=== PATIENT | male | born 1950 | race Caucasian/White ===

== ENCOUNTER 2024-12-30 10:31 | Outpatient (OUT) | payer MEDICARE, BC, SELFPAY ==
--- NOTE | 2024-12-30 10:39 | XR_ITS ---
The [address] [address] Patient Name: MANUEL CADET MRN: [id number] date: 1950 Sex: M Assigned Patient Location: [facility] Current Patient Location: [facility] Accession/Order Number: [id number] Exam Date: 12/30/2024 11:55 Report Date: 12/30/2024 13:54 At the request of: MARGAUX TIMMIS Procedure: XR chest 2V PROCEDURE: XR chest 2V DATE: 12/30/2024 11:55 AM EST COMPARISONS: None. CLINICAL INDICATION: 73 years Male Preop exam FINDINGS: The cardiomediastinal silhouette and pulmonary vasculature are within normal limits. Poststernotomy changes are identified. An atrial appendage clip is noted. TAVR is present. Slight scattered increased interstitial markings suggest some mild chronic lung changes. Granulomatous changes are noted of the right hilum and suprahilar region. The lungs are otherwise clear. There is no evidence of pleural effusion or pneumothorax. XR/XR chest 2V IMPRESSION: Findings as discussed above. No evidence of acute abnormalities. Electronically authenticated by: FRANCHESKA MACK Date: 12/30/2024 13:54
--- NOTE | 2024-12-30 10:39 | ECG_ITS ---
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
[2024-12-30 12:03] LABS: Hematocrit 46.6 % (42.0-54.0); Mean Corpuscular HGB Conc 27.9 g/dL (29.9-35.2); Mean Corpuscular Hemoglobin 20.9 pg (25.9-34.0); Mean Corpuscular Volume 74.9 fL (80.0-94.0); White Blood Count 12.3 10^3/uL (4.0-11.0)
[2024-12-30 12:04] LABS: Basophils Absolute Auto 0.4 10^3/uL (0.0-0.1); Basophils Percent Auto 3.5 % (0.2-2.0); Eosinophils Absolute Auto 0.3 10^3/uL (0.0-0.7); Eosinophils Percent Auto 2.4 % (0.9-7.0); Immature Granulocytes Abs Auto 0.12 10^3/uL (0.00-0.03); Lymphocytes Absolute Auto 0.8 10^3/uL (1.2-3.8); Lymphocytes Percent Auto 6.1 % (20.5-60.0); Mean Platelet Volume 9.9 fL (9.5-13.5); Monocytes Absolute Auto 0.8 10^3/uL (0.3-0.8); Monocytes Percent Auto 6.3 % (1.7-12.0); Neutrophils Percent Auto 80.7 % (43.0-75.0); Platelet Count 314 10^3/uL (150-450); Red Cell Distribution Width 18.8 % (11.0-15.0)
[2024-12-30 12:24] LABS: Red Blood Count 6.22 10^6/uL (4.70-6.10)
[2024-12-30 12:25] LABS: INR 1.05; Partial Thromboplastin Time 27.9 sec (22.3-36.2); Prothrombin Time 11.1 sec (9.0-11.6)
[2024-12-30 12:42] LABS: Alanine Aminotransferase 32 U/L (16-63); Albumin Level 3.6 g/dL (3.4-5.0); Alkaline Phosphatase 103 U/L (46-116); Aspartate Amino Transferase 28 U/L (15-37); BUN Creatinine Ratio 10.5; Bilirubin Direct 0.1 mg/dL (0.0-0.2); Bilirubin Total 0.5 mg/dL (0.2-1.0); Calcium 9.1 mg/dL (8.5-10.1); Carbon Dioxide 25.7 mmol/L (21.0-32.0); Chloride 103 mmol/L (98-107); Estimated GFR (African America 55 (>=60 mL/min/1.73m^2); Estimated GFR (Non-African Ame 45 (>=60 mL/min/1.73m^2); Globulin 3.7 g/dL; Glucose 271 mg/dL (74-106); Potassium 4.7 mmol/L (3.5-5.1); Sodium 139 mmol/L (136-145); Total Protein 7.3 g/dL (6.4-8.2)
--- NOTE | 2024-12-30 13:18 | P.GSHP_ITS ---
History of Present Illness History of Present Illness Chief complaint: right tonsil lesion Narrative: Mr. Kaleb Alfred is a 73-year-old male presents to presurgical testing with a right tonsil lesion. He has been evaluated by Dr. Cash and he is now scheduled for removal on January 05, 2025. Review of Systems ROS Narrative REVIEW OF SYSTEMS: Negative except as stated in HPI, ten or more systems reviewed. Integumentary: He reports an abdominal pain that remains in stages of healing from a hemicolectomy. 2019 Constitutional: No fever, chills, weakness ENT: No sore throat or epistaxis Cardiovascular: No edema, chest pain, palpitations, or activity intolerance Respiratory: No shortness of breath, cough, or wheezing Musculoskeletal: No joint pain or swelling Gastrointestinal: No abdominal pain, constipation, diarrhea, or vomiting Genitourinary: No dysuria or hematuria Neurological: No numbness, tingling, weakness, or headache Psychiatric: No mood changes [facility] History (Updated 12/30/24 @ 13:17 by Jailyn Conway) Osteoarthritis ?M19.90 - Unspecified osteoarthritis, unspecified site (ICD-10) Anemia ?D64.9 - Anemia, unspecified (ICD-10) Diarrhea ?R19.7 - Diarrhea, unspecified (ICD-10) Delayed recovery from anesthesia Fatigue ?R53.83 - Other fatigue (ICD-10) Bronchitis ?J40 - Bronchitis, not specified as acute or chronic (ICD-10) 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 - Malignant neoplasm of intestinal tract, part unspecified (ICD-10) Adenocarcinoma of colon ?C18.9 - Malignant neoplasm of colon, unspecified (ICD-10) Acute on chronic anemia ?D64.9 - Anemia, unspecified (ICD-10) Thyroid nodule ?E04.1 - Nontoxic single thyroid nodule (ICD-10) Thyroid mass ?E07.9 - Disorder of thyroid, unspecified (ICD-10) Hypothyroid ?E03.9 - Hypothyroidism, unspecified (ICD-10) Viral hepatitis A ?B15.9 - Hepatitis A without hepatic coma (ICD-10) Thrombocytosis ?D75.839 - Thrombocytosis, unspecified (ICD-10) Shortness of breath ?R06.02 - Shortness of breath (ICD-10) Dyspnea on exertion ?R06.09 - Other forms of dyspnea (ICD-10) Sepsis ?A41.9 - Sepsis, unspecified organism (ICD-10) Rectal bleeding ?K62.5 - Hemorrhage of anus and rectum (ICD-10) NSTEMI (non-ST elevated myocardial infarction) ?I21.4 - Non-ST elevation (NSTEMI) myocardial infarction (ICD-10) Myeloproliferative disorder ?D47.1 - Chronic myeloproliferative disease (ICD-10) Metabolic acidosis ?E87.20 - Acidosis, unspecified (ICD-10) Melena ?K92.1 - Melena (ICD-10) Lower GI bleed ?K92.2 - Gastrointestinal hemorrhage, unspecified (ICD-10) Left-sided weakness ?R53.1 - Weakness (ICD-10) 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 - Other specified disorders involving the immune mechanism, not elsewhere classified (ICD-10) 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 - Intestinal malabsorption, unspecified (ICD-10) Iron deficiency ?E61.1 - Iron deficiency (ICD-10) Hypocalcemia ?E83.51 - Hypocalcemia (ICD-10) Hypoalbuminemia ?E88.09 - Other disorders of plasma-protein metabolism, not elsewhere classified (ICD-10) Bicuspid aortic valve ?Q23.81 - Bicuspid aortic valve (ICD-10) Graves disease ?E05.00 - Thyrotoxicosis with diffuse goiter without thyrotoxic crisis or storm (ICD-10) Erythrocytosis ?D75.1 - Secondary polycythemia (ICD-10) Electrolyte disorder ?E87.8 - Other disorders of electrolyte and fluid balance, not elsewhere classified (ICD-10) Azotemia ?R79.89 - Other specified abnormal findings of blood chemistry (ICD-10) Acute kidney injury superimposed on CKD ?N17.9 - Acute kidney failure, unspecified (ICD-10) ?N18.9 - Chronic kidney disease, unspecified (ICD-10) Aortic valve disorder ?I35.9 - Nonrheumatic aortic valve disorder, unspecified (ICD-10) Chest pain ?R07.9 - Chest pain, unspecified (ICD-10) Chronic fatigue ?R53.82 - Chronic fatigue, unspecified (ICD-10) Colonic mass ?K63.89 - Other specified diseases of intestine (ICD-10) Vitamin D deficiency ?E55.9 - Vitamin D deficiency, unspecified (ICD-10) Venous thrombosis of lower extremity ?I82.90 - Acute embolism and thrombosis of unspecified vein (ICD-10) Diabetes ?E11.9 - Type 2 diabetes mellitus without complications (ICD-10) Goiter ?E04.9 - Nontoxic goiter, unspecified (ICD-10) Hyperthyroidism ?E05.90 - Thyrotoxicosis, unspecified without thyrotoxic crisis or storm (ICD-10) Chronic kidney disease ?N18.9 - Chronic kidney disease, unspecified (ICD-10) Rectal cancer ?C20 - Malignant neoplasm of rectum (ICD-10) Colon cancer ?C18.9 - Malignant neoplasm of colon, unspecified (ICD-10) Pure hypercholesterolemia ?E78.00 - Pure hypercholesterolemia, unspecified (ICD-10) Polycythemia vera ?D45 - Polycythemia vera (ICD-10) MAC (obstructive sleep apnea) ?G47.33 - Obstructive sleep apnea (adult) (pediatric) (ICD-10) Aortic stenosis ?I35.0 - Nonrheumatic aortic (valve) stenosis (ICD-10) Mild aortic insufficiency ?I35.1 - Nonrheumatic aortic (valve) insufficiency (ICD-10) Leukocytosis ?D72.829 - Elevated white blood cell count, unspecified (ICD-10) Left ventricular hypertrophy ?I51.7 - Cardiomegaly (ICD-10) Hyperlipidemia ?E78.5 - Hyperlipidemia, unspecified (ICD-10) Hypertension ?I10 - Essential (primary) hypertension (ICD-10) Peripheral vascular disorder ?I73.9 - Peripheral vascular disease, unspecified (ICD-10) Renal disease ?N28.9 - Disorder of kidney and ureter, unspecified (ICD-10) CAD (coronary artery disease) ?I25.10 - Atherosclerotic heart disease of robinson coronary artery without angina pectoris (ICD-10) Atherosclerotic heart disease ?I25.10 - Atherosclerotic heart disease of robinson coronary artery without angina pectoris (ICD-10) COPD (chronic obstructive pulmonary disease) ?J44.9 - Chronic obstructive pulmonary disease, unspecified (ICD-10) CVA (cerebral vascular accident) ?I63.9 - Cerebral infarction, unspecified (ICD-10) 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) (ICD-10) Allergic rhinitis ?J30.9 - Allergic rhinitis, unspecified (ICD-10) Hypothyroidism (acquired) ?E03.9 - Hypothyroidism, unspecified (ICD-10) Surgical History S/P thyroid biopsy ?Z98.890 - Other specified postprocedural states (ICD-10) History of cardiac catheterization ?Z98.890 - Other specified postprocedural states (ICD-10) History of esophagogastroduodenoscopy (EGD) ?Z98.890 - Other specified postprocedural states (ICD-10) H/O colonoscopy ?Z98.890 - Other specified postprocedural states (ICD-10) History of bone marrow biopsy ?Z98.890 - Other specified postprocedural states (ICD-10) History of appendectomy ?Z90.49 - Acquired absence of other specified parts of digestive tract (ICD- 10) H/O ventral hernia repair ?Z98.890 - Other specified postprocedural states (ICD-10) ?Z87.19 - Personal history of other diseases of the digestive system (ICD-10) S/P excisional debridement ?Z98.890 - Other specified postprocedural states (ICD-10) H/O prosthetic heart valve ?Z95.2 - Presence of prosthetic heart valve (ICD-10) Hx of CABG ?Z95.1 - Presence of aortocoronary bypass graft (ICD-10) H/O colectomy ?Z90.49 - Acquired absence of other specified parts of digestive tract (ICD- 10) Family History (Updated 12/30/24 @ 11:03 by Jailyn Conway) Other Aneurysm Family history of COPD (chronic obstructive pulmonary disease) Family history of cancer Family history of diabetes mellitus Family history of lung cancer Lung cancer Social History (Updated 12/30/24 @ 11:01 by Jailyn Conway) Within the past year, how often did you have a drink containing alcohol: never Score interpretation: A score less than 4 is consistent with normal alcohol consumption. Smoking status: Former smoker Non-prescribed substance use: denies use Previous occupational history: retired Highest level of school completed/degree received: 9th grade Meds Home Medications and Allergies Home Medications ?Medication ?Instructions ?Recorded ?Confirmed ?Type atorvastatin 80 mg tablet 80 mg PO DAILY 12/27/24 12/30/24 History cholecalciferol (vitamin D3) 125 125 mcg PO .COMPLEX 12/27/24 12/30/24 History mcg (5,000 unit) capsule cyanocobalamin (vitamin B-12) 1,000 mcg PO DAILY 12/27/24 12/30/24 History 1,000 mcg tablet empagliflozin 25 mg tablet 25 mg PO DAILY 12/27/24 12/30/24 History (Jardiance) hydroxyurea 500 mg capsule 500 mg PO DAILY 12/27/24 12/30/24 History hydroxyzine HCl 10 mg tablet 10 mg PO Q8H 12/27/24 12/30/24 History levothyroxine 50 mcg tablet 50 mcg PO DAILY 12/27/24 12/30/24 History metoprolol tartrate 50 mg tablet 25 mg PO Q12H 12/27/24 12/30/24 History ondansetron HCl 4 mg tablet 4 mg PO PRN 12/27/24 12/30/24 History aspirin 81 mg chewable tablet 81 mg PO DAILY 12/30/24 12/30/24 History (Aspirin Childrens) insulin glargine 100 unit/mL (3 25 unit subcut QPM 12/30/24 12/30/24 History mL) subcutaneous pen (Basaglar KwikPen U-100 Insulin) insulin lispro 100 unit/mL 40 unit subcut QAM 12/30/24 12/30/24 History subcutaneous pen (Humalog KwikPen (U-100) Insulin) linagliptin 5 mg tablet (Tradjenta) 5 mg PO DAILY 12/30/24 12/30/24 History multivitamin (Daily Multi-Vitamin 1 tab PO DAILY 12/30/24 12/30/24 History tablet) nitroglycerin 0.3 mg sublingual 0.3 mg sublingual Q5M PRN chest 12/30/24 12/30/24 History tablet pain Allergies Allergy/AdvReac Type Severity Reaction Status Date / Time dulaglutide (From [facility]) Allergy Mild Fatigued Verified 12/30/24 10:59 Exam Narrative Exam Narrative: On constitutional: Awake, alert, comfortable, well-appearing, nontoxic, interactive, vital signs as charted Head: Normocephalic, atraumatic Eyes: Conjunctiva and lids normal to inspection, pupils normal ENT: Tympanic membranes pearly hawkins, nonerythematous, noninjected, naris patent, centimeters erythematous right tonsil cyst, oral mucosa moist Neck: Supple, normal appearance, normal range of motion, no meningeal signs, no lymphadenopathy Respiratory: No respiratory distress, breath sounds clear Cardiovascular: Regular rate and rhythm, strong and regular heart tones Abdomen: Nontender, normal bowel sounds, soft, no CVA tenderness Musculoskeletal: Normal gait, no swelling or edema Skin: No rashes or induration, mid abdomen with large scar status post hemicolectomy 4 years ago; without evidence of infection but still in stages of healing with notable granulation tissue 5 cm no surrounding erythema or edema Neuro: No neurological deficits, normal sensation Psychiatric: Oriented ?3, normal affect Assessment and Plan Assessment and Plan (1) Lesion of tonsil: Plan Removal of right tonsil lesion scheduled with Dr. Cash on January 07, 2025
== END 2024-12-30 10:32 | disposition home or self-care (01) ==
LOC: PST 10:32
PROVIDERS: PCP Nurse Practitioner; Visit Provider Otolaryngology
DX: Z01.810 Encounter for preprocedural cardiovascular examination (principal); Z01.812 Encounter for preprocedural laboratory examination; Z01.818 Encounter for other preprocedural examination; J35.9 Chronic disease of tonsils and adenoids, unspecified
CPT/HCPCS: 71046; 80048; 80076; 85025; 85610; 85730; 93005; G0463

== ENCOUNTER 2025-01-05 08:02 | Day surgery (SDC) | payer MEDICARE, BC, SELFPAY ==
[2024-12-30 12:58] VITALS: BP 149/82; PULSE 69; TEMP 36.3; O2SAT 69; BMI 28.7
[2025-01-05] VITALS (13 sets, daily range): BP systolic 106–165; BP diastolic 61–101; PULSE 73–98; TEMP 36.2–36.3; O2SAT 91–99; BMI 28.6
--- NOTE | 2025-01-05 | OP_ITS ---
OPERATION DATE: 01/05/2025 SURGEON: Scarlett Cash M.D. PREOPERATIVE DIAGNOSIS: Right tonsil lesion. POSTOPERATIVE DIAGNOSIS: Right tonsil lesion. PROCEDURE: Removal of right tonsil lesion. ANESTHESIA: General endotracheal. COMPLICATIONS: None. FINDINGS: A cystic lesion of the right superior pole of the tonsil. INDICATIONS: This 73-year-old man presented with the above lesion for removal, to rule out carcinoma. PROCEDURE: Patient identified in the holding area and taken back to the OR where he was placed in the supine position. After induction of general anesthesia, the table was turned, a shoulder roll placed, and the McIvor mouth gag inserted with care taken to avoid injury to the lips, teeth and tongue. A Bland tip Bovie was then used to undermine a nodular lesion of the right tonsil. The lesion ruptured revealing milky, cystic contents. The lesion was then removed and the tonsil was irrigated. A small area of slight bleeding was cauterized with suction Bovie and the oropharynx was copiously irrigated. The patient was then awakened and taken to the recovery room in good condition. MARCI
[2025-01-05 08:26] LABS: Glucometer 260 mg/dL (74-106)
[2025-01-05] MEDS: LACTATED RINGER'S SOLUTION 1,000 ML 50 ML IV ×2 (08:45→10:45)
--- NOTE | 2025-01-05 11:15 | PC.NURSE ---
1115: pt moaning but has no complaints of pain,pt states he's just tired
--- NOTE | 2025-01-05 11:27 | PC.NURSE ---
1127:: pt continues to moan,pt states no pain at this time.
--- NOTE | 2025-01-05 12:04 | PC.NURSE ---
PATIENT IS NAUSEATED AND DRY HEAVING. DR BARNES ORDERED PHENERGHAN
[2025-01-05] MEDS: SODIUM CHLORIDE 0.9% IV (12:05)
[2025-01-05] MEDS: PROMETHAZINE HCL IV (12:05)
--- NOTE | 2025-01-05 12:40 | PC.NURSE ---
States nausea better and resting on left side
--- NOTE | 2025-01-05 13:01 | PC.NURSE ---
No c/o nausea; lying on left side resting; responds appropriately
--- NOTE | 2025-01-05 13:48 | PC.NURSE ---
Up to bathroom and voids without difficulty; sitting in chair; lunch ordered; no c/o nausea
--- NOTE | 2025-01-05 13:50 | PC.NURSE ---
Lunch arrived and eating without nausea or vomiting; son present
== END 2025-01-05 14:20 | disposition home or self-care (01) ==
PROVIDERS: PCP Nurse Practitioner; Visit Provider Otolaryngology
PROC: (CPT 42808; principal; 2025-01-05 09:30)
DX: K09.8 Other cysts of oral region, not elsewhere classified (principal); J35.9 Chronic disease of tonsils and adenoids, unspecified; Z95.1 Presence of aortocoronary bypass graft; Z87.891 Personal history of nicotine dependence; G47.33 Obstructive sleep apnea (adult) (pediatric); J44.9 Chronic obstructive pulmonary disease, unspecified; R06.00 Dyspnea, unspecified; E78.5 Hyperlipidemia, unspecified; I25.10 Atherosclerotic heart disease of native coronary artery without angina pectoris; I35.2 Nonrheumatic aortic (valve) stenosis with insufficiency; Z86.73 Personal history of transient ischemic attack (TIA), and cerebral infarction without residual deficits; E11.9 Type 2 diabetes mellitus without complications; Z79.4 Long term (current) use of insulin; K74.60 Unspecified cirrhosis of liver; E03.9 Hypothyroidism, unspecified; Z85.038 Personal history of other malignant neoplasm of large intestine
CPT/HCPCS: 42808; 36415; 82948; 88304; J1100; J2250; J2405; J2550; J2704; J3010